=== PATIENT | female | born 1955 | race Caucasian/White ===

== ENCOUNTER 2020-03-21 10:52 | Outpatient (CLI) | payer OTHER ==
--- NOTE | 2020-03-21 13:01 | CT ---
CT BRAIN WITHOUT CONTRAST: HISTORY: Dementia without behavioral disturbance, unspecified dementia type. Aphasia. COMPARISON: None. FINDINGS: No evidence of acute infarct, hemorrhage, or midline shift is seen. There is mild prominence of the ventricular system. There is kvng cisterna magna. The bony calvarium is intact. The visualized par anasal sinuses and mastoid air cells are well aerated. IMPRESSION: 1. No CT evidence of acute intracranial process. 2. Further evaluation with MRI would be helpful. POS: [facility]
== END 2020-03-21 10:53 | disposition home or self-care (01) ==
LOC: SCSCT 10:52
PROVIDERS: ATTEND Family Medicine
DX: F03.90 Unspecified dementia, unspecified severity, without behavioral disturbance, psychotic disturbance, mood disturbance, and anxiety (principal); R47.01 Aphasia
CPT/HCPCS: 70450

== ENCOUNTER 2020-04-05 12:45 | Outpatient (CLI) | payer OTHER ==
[~2020-04-05 12:45] MED LIST: Magnevist 469MG/ML 20 ML VIAL ONE
--- NOTE | 2020-04-05 13:51 | MRI ---
MRI BRAIN WITH AND WITHOUT CONTRAST: DATE: 04/05/2020 HISTORY: 64-year-old female with aphasia ICD-10: R 47.01 COMPARISON: None TECHNIQUE: Multiplanar, multisequence MRI of the brain performed pre- and post-IV injection of gadolinium based contrast agent. FINDINGS: No significant intra-axial signal abnormality; no evidence of significant chronic ischemic white helene er changes. No moderate sized or large infarction of any age. No restricted diffusion. No recent or remote intra-axial hemorrhage, mass effect, midline shift, or obstructive hydrocephalus. Mild diffuse cerebral parenchymal volume loss, not necessarily abnormal for this age group. A posterior fossa extra-axial enlarged CSF space/fluid collection within direct connection to fourth ventricle continue s superiorly as a a rather large midline superior component that reaches the level of the splenium of the corpus callosum, resulting in chronic mild superior displacement of the straight sinus and vei n of Daryl, and decreased AP dimension of the cerebellar vermis. This is in the magna cisterna [id number]-Sffycq variant spectrum. No dural venous sinus thrombosis. Flow voids are grossly maintai ramila in the major arteries of [place] of [place]ag[place]. IMPRESSION: No acute or aggressive intracranial process.
== END 2020-04-05 12:46 | disposition home or self-care (01) ==
LOC: MRI 12:45
PROVIDERS: ATTEND Family Medicine
DX: R47.01 Aphasia (principal)
CPT/HCPCS: 70553; A9579